=== PATIENT | male | born 1945 | race Caucasian/White ===

== ENCOUNTER 2018-04-23 11:52 | Emergency (ER) | payer MEDICARE, OTHER ==
[~2018-04-23] VITALS: Ht 177.8 cm; Wt 90.7 kg
[2018-04-23 11:52] VITALS: BP 129/78
[2018-04-23] MEDS ORDERED: IV NS 0.9% 500 ML BAG IV ONE (12:30)
[2018-04-23 12:45] LABS: BASOPHILS # (AUTO) 0.1 /CMM (0.0-0.2); BASOPHILS % (AUTO) 0.9 % (0.0-2.0); EOSINOPHILS % (AUTO) 1.3 % (0.0-6.0); HEMATOCRIT 49 % (39-51); HEMOGLOBIN 16.6 g/dL (13.5-17.5); LYMPHOCYTES # (AUTO) 1.3 /CMM (0.8-4.8); LYMPHOCYTES % (AUTO) 13.1 % (20.0-44.0); MEAN CORPUSCULAR HGB CONC 34 g/dl (31.0-36.0); MEAN CORPUSCULAR VOLUME 94 fL (80-96); MONOCYTES # (AUTO) 0.7 /CMM (0.1-1.30); MONOCYTES % (AUTO) 7.4 % (2.0-12.0); NEUTROPHILS # (AUTO) 7.7 /CMM (1.8-8.9); NEUTROPHILS % (AUTO) 77.3 % (43.0-81.0); PLATELET COUNT (AUTO) 292 /CMM (150-450); RED BLOOD CELL COUNT(AUTO) 5.17 MIL/uL (4.5-6.0); WHITE BLOOD COUNT (AUTO) 9.9 K/uL (4.3-11.0)
[2018-04-23 12:55] LABS: CALCIUM, SERUM 9.5 mg/dL (8.5-10.1); CARBON DIOXIDE 30 mmol/L (21-32); CHLORIDE 105 mmol/L (98-107); GLUCOSE 127 mg/dL (74-106); POTASSIUM 4.2 mmol/L (3.5-5.1); SODIUM SERUM 143 mmol/L (136-145); UREA NITROGEN, BLOOD 15 mg/dL (7-18)
[2018-04-23 13:00] LABS: ALANINE AMINOTRANSFERASE 47 U/L (12-78); ALBUMIN 4.2 g/dL (3.4-5.0); ALKALINE PHOSPHATASE 107 U/L (46-116); ASPARTATE AMINOTRANSFERASE 23 U/L (15-37); BILIRUBIN,DIRECT 0.1 mg/dL (0.0-0.2); BILIRUBIN,TOTAL 0.6 mg/dL (0.2-1.0); TOTAL PROTEIN, SERUM 7.8 g/dL (6.4-8.2)
[2018-04-23] MEDS ORDERED: IV NS 0.9% 1,000 ML BAG IV ONE (13:00)
[2018-04-23 13:27] LABS: THYROID STIMULATING HORMONE 2.067 uIU/mL (0.358-3.74)
--- NOTE | 2018-04-23 13:28 | NUR ---
TRACY 78 FROM DOCTOR'S OFFICE FOR NEAR SYNCOPE, HYPOTENSIVE WHEN PARAMEDICS ARRIVED AT THE SCENE, 400ML FLUID CHALLENGE GIVEN DISPLAY COORDINATOR, DIAPHORETIC. PT AAOX4, VSS. PT C/O ABD PAIN, HAD EPISODE OF DIARRHEA THIS AM, NAUSEA. DENIES CP, SOB, DIZZINESS, WEAKNESS @ THIS TIME. PT SEEN & EVAL'D BY DR. CRESPO & WILL CONT TO MONITOR.
--- NOTE | 2018-04-23 14:05 | NUR ---
Patient discharged to home in stable condition. Written and verbal after care instructions given. Patient verbalizes understanding of instruction.
== END 2018-04-23 14:09 | disposition home or self-care (01) ==
LOC: ER 11:54
DX: R55 Syncope and collapse (principal); R61 Generalized hyperhidrosis; I10 Essential (primary) hypertension
CPT/HCPCS: 36415; 71045-TC; 80048-TC; 80076-TC; 83880; 84443-TC; 84484-TC; 85025-TC; 85730-TC; J7030; J7040